=== PATIENT | male | born 1990 | race Caucasian/White ===

== ENCOUNTER 2017-01-18 10:56 | Emergency (ER) | payer SELFPAY ==
[~2017-01-18] VITALS: Ht 157.5 cm; Wt 88.0 kg
[2017-01-18] MEDS ORDERED: AMOXICILLIN500 M1 PO (12:49)
[2017-01-18 13:11] VITALS: BP 120/80
== END 2017-01-18 13:12 | disposition home or self-care (01) ==
LOC: EME 10:56
DX: J02.0 Streptococcal pharyngitis (principal); R50.9 Fever, unspecified; J06.9 Acute upper respiratory infection, unspecified
CPT/HCPCS: 87651 90; 99281; 99284; J0561

== ENCOUNTER 2018-04-25 13:25 | Emergency (ER) | payer SELFPAY ==
[~2018-04-25] VITALS: Ht 154.9 cm; Wt 93.0 kg
[~2018-04-25 13:25] MED LIST: AMOXICILLIN500 M1 PO
[2018-04-25] MEDS ORDERED: NAPROXEN500 MG PO (15:52)
[2018-04-25 16:06] VITALS: BP 147/90
== END 2018-04-25 16:06 | disposition home or self-care (01) ==
LOC: EME 13:25
DX: M77.32 Calcaneal spur, left foot (principal); J45.909 Unspecified asthma, uncomplicated; I25.2 Old myocardial infarction
CPT/HCPCS: 73630; 99281; 99284; J1100